=== PATIENT | female | born 1990 | race Hispanic/Latino ===

== ENCOUNTER 2017-03-14 08:20 | Day surgery (SDC) | payer OTHER ==
[2017-03-06 09:49] VITALS: BMI 28.1
[2017-03-14] MEDS ORDERED: Propofol 10 mg/ml Inj (20 ML) ONE (09:32)
[2017-03-14 10:11] VITALS: O2SAT 99
[2017-03-14] MEDS ORDERED: Sodium Chloride 0.9% 1,000 ML IV SCH (10:15)
[2017-03-14 10:48] VITALS: BP 104/60; PULSE 66; RESP 16; TEMP 98.6
== END 2017-03-14 11:09 | disposition home or self-care (01) ==
LOC: ENDO 08:20
PROVIDERS: ATTEND Internal Medicine Gastroenterology
DX: K29.50 Unspecified chronic gastritis without bleeding (principal); B96.81 Helicobacter pylori [H. pylori] as the cause of diseases classified elsewhere; K31.84 Gastroparesis; R10.9 Unspecified abdominal pain; R19.4 Change in bowel habit; K59.00 Constipation, unspecified; K64.8 Other hemorrhoids; Z88.0 Allergy status to penicillin
CPT/HCPCS: 43239; 45380; 84703; 88305; 88342; J2704; J7040 ×2

== ENCOUNTER 2017-12-21 18:17 | Emergency (ER) | payer OTHER ==
[2017-12-21 18:18] VITALS: BMI 28.1
[2017-12-21 18:28] VITALS: TEMP 98.6
[2017-12-21 19:28] VITALS: BP 130/74; PULSE 72; RESP 18; O2SAT 100
--- NOTE | 2017-12-21 19:55 | ED PDOC ---
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 States she accidentally stuck herself with a needle, while placing IV access on a patient. States the patient jumped when she put the needle in, and the needle came out and stuck her. She notes that she is up to date with her TD vaccination. She also request test. States she is trying to get and her LMP was in October. Notes 2 home test was negative at home. She denies any other complaint. Past Medical History - Provider Review Nursing Documentation Reviewed: Yes - Infectious Disease Hx of Infectious Diseases: None - Cardiac Hx Cardiac Disorders: No - Pulmonary Hx Respiratory Disorders: No - Neurological Hx Neurological Disorder: No - HEENT Hx HEENT Disorder: No - Renal Hx Renal Disorder: No - Endocrine/Metabolic Hx Endocrine Disorders: No - Hematological/Oncological Hx Blood Disorders: No - Integumentary Hx Dermatological Disorder: Yes Other/Comment: MRSA/ABSCESS - Musculoskeletal/Rheumatological Hx Musculoskeletal Disorders: No - Gastrointestinal Hx Gastrointestinal Disorders: Yes Hx Gastroesophageal Reflux: Yes - Genitourinary/Gynecological Hx Genitourinary Disorders: No - Psychiatric Hx Psychophysiologic Disorder: No Hx Substance Use: No - Surgical History Hx Tonsillectomy: Yes - Anesthesia Hx Anesthesia Reactions: No Hx Malignant Hyperthermia: No - Suicidal Assessment Feels Threatened In Home Enviroment: No Family/Social History - Physician Review Nursing Documentation Reviewed: Yes Family/Social History: Unknown Family HX Smoking Status: Never Smoked Hx Alcohol Use: No Hx Substance Use: No Allergies/Home Meds Allergies/Adverse Reactions: Allergies Penicillins Allergy (Verified 12/21/17 18:20) RASH sulfamethoxazole [From Bactrim] Allergy (Verified 12/21/17 18:20) RASH trimethoprim [From Bactrim] Allergy (Verified 12/21/17 18:20) RASH Home Medications: Home Meds Medication Instructions Recorded Confirmed Omeprazole 1 cap PO DAILY 03/06/17 12/21/17 Zolpidem [Ambien] 10 mg PO DAILY 03/06/17 12/21/17 Review of Systems - Physician Review All systems were reviewed & negative as marked: Yes - Review of Systems Constitutional: Normal Eyes: Normal ENT: Normal Respiratory: Normal Cardiovascular: Normal Gastrointestinal: Normal Genitourinary Female: Normal Musculoskeletal: Normal Skin: Normal, Other (Needle stick) Neurological: Normal Endocrine: Normal Hemo/Lymphatic: Normal Psychiatric: Normal Physical Exam Vital Signs Reviewed: Yes Vital Signs Temp Pulse Resp BP Pulse Ox 12/21/17 19:27 72 18 130/74 100 12/21/17 18:21 98.6 F 97 H 16 127/81 97 Temperature: Afebrile Blood Pressure: Normal Pulse: Regular Respiratory Rate: Normal Appearance: Positive for: Well-Appearing, Non-Toxic, Comfortable Pain Distress: None Mental Status: Positive for: Alert and Oriented X 3 - Systems Exam Head: Present: Atraumatic, Normocephalic Pupils: Present: PERRL Extroacular Muscles: Present: EOMI Conjunctiva: Present: Normal Mouth: Present: Moist Mucous Membranes Neck: Present: Normal Range of Motion Respiratory/Chest: Present: Clear to Auscultation, Good Air Exchange. No: Respiratory Distress, Accessory Muscle Use Cardiovascular: Present: Regular Rate and Rhythm, Normal S1, S2. No: Murmurs Abdomen: No: Tenderness, Distention, Peritoneal Signs Back: Present: Normal Inspection Upper Extremity: Present: Normal Inspection. No: Cyanosis, Edema Lower Extremity: Present: Normal Inspection. No: Edema Neurological: Present: GCS=15, CN II-XII Intact, Speech Normal Skin: Present: Warm, Dry, Normal Color, Other (Superficial puncture wound noted on lateral 2nd finger). No: Rashes Psychiatric: Present: Alert, Oriented x 3, Normal Insight, Normal Concentration Medical Decision Making ED Course and Treatment: 12/22/17 00:29 Pt in Emergency department for stated history. She was offered antiviral/HAART prophylaxis and she declined. States she will decide when she goes to the [facility]. She reports that she cleaned the wound with saline and peroxide. - Lab Interpretations Lab Results: Lab Results 12/21/17 18:55: HIV-1 Ab Rapid Screen Non reactive 12/21/17 18:55: Beta HCG, Quant < 2.39 - Medication Orders Current Medication Orders: Discontinued Medications Doxycycline Hyclate (Doryx) 100 mg PO STAT STA PRN Reason: Protocol Stop: 12/21/17 20:06 Last Admin: 04/05/18 20:10 Dose: 100 mg Disposition/Present on Arrival - Present on Arrival Any Indicators Present on Arrival: No History of DVT/PE: No History of Uncontrolled Diabetes: No Urinary Catheter: No History of Decub. Ulcer: No History Surgical Site Infection Following: None - Disposition Have Diagnosis and Disposition been Completed?: Yes Diagnosis: Needle stick injury of finger Disposition: HOME/ ROUTINE Disposition Time: 20:10 Patient Plan: Discharge Condition: STABLE Discharge Instructions (ExitCare): Wound Care (DC) Additional Instructions: [facility] Employee Regarding your Work Related Injury, you are instructed to do all of the following by next day: 1. Notify [facility] Employee Health Department of the sustained injury and arrange for any follow-up appointments if needed during the next business day. If the office is closed or no answer is received, please leave a detailed voice message. Message should include your full name, department and manager costing, date of injury, date of ED visit if applicable. Employee Health can be reached at [phone]. 2. If there is time lost, notify [facility] Human Resources Department of the work related injury the next business day at [phone]. Follow up with employee health Prescriptions: Doxycycline Hyclate 100 mg PO BID #14 capsule Referrals: Bernice Lyles DO [Primary Care Provider] - Follow up with primary Forms: [employer] (Arabic)
[2017-12-22 12:24] LABS: HEPATITIS B SURFACE AG Negative (NEGATIVE)
[2017-12-22 12:30] LABS: HEPATITIS A IGM NEGATIVE (NEGATIVE); HEPATITIS B CORE AB NEGATIVE (NEGATIVE)
[2017-12-22 12:42] LABS: HEPATITIS C ANTIBODY NEGATIVE (NEGATIVE)
== END 2017-12-21 20:11 | disposition home or self-care (01) ==
LOC: ED 18:17
DX: S61.231A Puncture wound without foreign body of left index finger without damage to nail, initial encounter (principal); W46.0XXA Contact with hypodermic needle, initial encounter; Y93.F9 Activity, other caregiving; Y92.238 Other place in hospital as the place of occurrence of the external cause; Y99.0 Civilian activity done for income or pay